=== PATIENT | male | born 1985 | race Caucasian/White ===

== ENCOUNTER 2021-06-12 08:30 | Emergency (ER) | payer OTHER ==
[2021-06-12 09:10] LABS: BASOPHIL 1.6 % (0-2); EOSINOPHIL 4.5 % (0-5); HCT 46.3 % (42.0-52.0); HGB 15.3 g/dl (13.2-18.0); LYMPHOCYTE 20.5 % (15-48); MCV 93.9 fL (78.0-100.0); MONOCYTE 9.6 % (0-12); MPV 9.5 fL (6.0-9.5); NEUTROPHIL 63.5 % (41-80); NRBC 0; PLT 281 K/uL (150-400); RBC 4.93 M/uL (4.70-6.00); RDW 13.1 % (11.5-14.0); WBC 6.3 K/uL (4.0-10.5)
[2021-06-12 09:11] LABS: BILIRUBIN NEGATIVE (NEGATIVE); BLOOD 2+ Ery/uL (NEGATIVE); CLARITY CLEAR (CLEAR); COLOR YELLOW (YELLOW); GLUCOSE (U) NORMAL (NORMAL); LEUKOCYTES NEGATIVE Leu/uL (NEGATIVE); NITRITE NEGATIVE (NEGATIVE); PROTEIN NEGATIVE (NEGATIVE); UROBILINOGEN 0.2 mg/dL (0.2-1.0); pH 6.5 (5.0-9.0)
[2021-06-12 09:18] LABS: BACTERIA TRACE; URINARY WBC RARE
[2021-06-12 09:19] LABS: SQUAMOUS EPITHELIAL CELLS RARE
[2021-06-12 09:35] LABS: BUN/CREAT RATIO (CALC) 13.3 RATIO; CREATININE 0.9 mg/dL (0.67-1.17)
[2021-06-12] MEDS ORDERED: KETOROLAC TROME10 MG PO (09:50)
[2021-06-12] MEDS ORDERED: NORCO 5-325 TA1 EACH PO (09:50)
[2021-06-12] MEDS ORDERED: FLOMAX 0.4 MG0.4 MG PO (09:50)
== END 2021-06-12 09:57 | disposition home or self-care (01) ==
LOC: FER 08:30
PROVIDERS: Emergency Medicine
DX: N20.1 Calculus of ureter (principal)
CPT/HCPCS: 36415; 80048; 81001; 85025; J1885

== ENCOUNTER 2022-06-11 12:19 | Emergency (ER) | payer OTHER ==
[~2022-06-11 12:19] MED LIST: FLOMAX 0.4 MG0.4 MG PO; KETOROLAC TROME10 MG PO; NORCO 5-325 TA1 EACH PO
== END 2022-06-11 13:27 | disposition home or self-care (01) ==
LOC: FER 12:19
DX: S46.002A Unspecified injury of muscle(s) and tendon(s) of the rotator cuff of left shoulder, initial encounter (principal); Z28.310 Unvaccinated for COVID-19; V49.9XXA Car occupant (driver) (passenger) injured in unspecified traffic accident, initial encounter
CPT/HCPCS: 73030